=== PATIENT | female | born 1960 | race African-American/Black ===

== ENCOUNTER 2024-07-05 03:56 | Day surgery (SDC) | payer OTHER ==
[2024-06-30 11:57] VITALS: BMI 33.5
[~2024-07-05 03:56] MED LIST: BUPIVACAINE HCL/PF 0.25% (2.5MG/ML) 10 ML VIAL IJ ONE; LIDOCAINE HCL 1%, 10 MG/ML (20ML VIAL) NR ONE; METHYLENE BLUE 1% 10 MG/1 ML VIAL NR ONE
[2024-07-05] MEDS ORDERED: LIDOCAINE HCL 1%, 10 MG/ML (20ML VIAL) ONE (08:44)
[2024-07-05] MEDS ORDERED: ISOSULFAN BLUE 50 MG/5 ML VIAL SQ ONE (08:44)
[2024-07-05] MEDS ORDERED: BUPIVACAINE HCL/PF 0.25% (2.5MG/ML) 10 ML VIAL ONE (08:44)
[2024-07-05] MEDS ORDERED: LACTATED RINGERS SOLUTION 1,000 ML IV SCH (08:45)
[2024-07-05] MEDS ORDERED: ROCURONIUM BROMIDE 50 MG/5 ML SYRINGE ONE (10:58)
[2024-07-05] MEDS ORDERED: PROPOFOL 20 ML ONE ×2 (10:58→13:35)
[2024-07-05] MEDS ORDERED: MIDAZOLAM HCL 2 MG/2 ML SINGLE DOSE VIAL ONE (10:58)
[2024-07-05] MEDS ORDERED: SUCCINYLCHOLINE CHLORIDE 200 MG/10 ML SYRINGE ONE (11:51)
[2024-07-05] MEDS: ceFAZolin 2 GRAM PREMIX BAG IVPB ONE (12:03)
[2024-07-05] MEDS: LIDOCAINE HCL 1%, 10 MG/ML (20ML VIAL) NR ONE ×2 (13:21)
[2024-07-05] MEDS: BUPIVACAINE HCL/PF 0.25% (2.5MG/ML) 10 ML VIAL IJ ONE ×2 (13:21)
[2024-07-05] MEDS ORDERED: NEOSTIGMINE METHYLSULFATE 0.5 MG/1 ML - 10 ML MDV ONE (13:23)
[2024-07-05] MEDS ORDERED: ONDANSETRON 4 MG/2 ML VIAL ONE (14:36)
[2024-07-05] MEDS: ONDANSETRON 4 MG/2 ML VIAL IVPUSH PRN (14:39)
[2024-07-05 17:05] VITALS: RESP 16
[2024-07-05] MEDS: oxyCODONE HCL 5 MG TABLET PO PRN (17:05)
[2024-07-05] MEDS ORDERED: oxyCODONE HCL 5 MG TABLET ONE (17:11)
[2024-07-05 18:04] VITALS: BP 133/69; PULSE 61; TEMP 96.9
== END 2024-07-05 18:40 | disposition home or self-care (01) ==
LOC: JASU-SURG 03:56
PROVIDERS: ATTEND Surgery
PROC: 0HBU0ZZ Excision of Left Breast, Open Approach (ICD-10-PCS; principal; 2024-07-05 09:30)
PROC: 07B60ZX Excision of Left Axillary Lymphatic, Open Approach, Diagnostic (ICD-10-PCS; 2024-07-05 09:30)
DX: D05.12 Intraductal carcinoma in situ of left breast (principal)
CPT/HCPCS: 19281; 19282; 76098-TC-FY; 88307-TC; 94760; A9541

== ENCOUNTER 2024-08-30 06:44 | Day surgery (SDC) | payer OTHER ==
[2024-08-25 12:22] VITALS: BMI 33.4
[2024-08-30] MEDS ORDERED: LIDOCAINE HCL 1%, 10 MG/ML (20ML VIAL) ONE (14:00)
[2024-08-30] MEDS ORDERED: PROPOFOL 20 ML ONE (15:00)
[2024-08-30] MEDS ORDERED: LIDOCAINE HCL/PF 2% SDV 5ML VIAL ONE (15:00)
[2024-08-30] MEDS ORDERED: MIDAZOLAM HCL 2 MG/2 ML SINGLE DOSE VIAL ONE ×2 (15:00→15:04)
[2024-08-30] MEDS ORDERED: ceFAZolin SODIUM 1 GM VIAL ONE (15:04)
[2024-08-30] MEDS: ceFAZolin 2 GRAM PREMIX BAG IVPB ONE (15:10)
[2024-08-30] MEDS: LIDOCAINE HCL 1%, 10 MG/ML (20ML VIAL) NR ONE (15:15)
[2024-08-30] MEDS ORDERED: ONDANSETRON 4 MG/2 ML VIAL IVPUSH PRN (16:34)
[2024-08-30] MEDS ORDERED: LACTATED RINGERS SOLUTION 1,000 ML IV SCH (16:45)
[2024-08-30] MEDS ORDERED: oxyCODONE HCL 5 MG TABLET ONE (18:23)
[2024-08-30] MEDS: oxyCODONE HCL 5 MG TABLET PO ONE (18:25)
[2024-08-30 18:59] VITALS: RESP 20; TEMP 97.1
[2024-08-30 19:02] VITALS: BP 143/64; PULSE 62
== END 2024-08-30 19:00 | disposition home or self-care (01) ==
LOC: JASU-SURG 06:44
PROVIDERS: ATTEND Surgery
PROC: 0HBU0ZZ Excision of Left Breast, Open Approach (ICD-10-PCS; principal; 2024-08-30 13:45)
DX: D05.12 Intraductal carcinoma in situ of left breast (principal)
CPT/HCPCS: 88307-TC; 88342-TC; 94760